=== PATIENT | female | born 1955 | race Caucasian/White ===

== ENCOUNTER 2024-03-27 07:02 | Day surgery (SDC) | payer MEDICARE ==
[~2024-03-27] VITALS: Ht 152.4 cm; Wt 87.5 kg
[~2024-03-27 07:02] MED LIST: ALENDRONATE SOD70 MG PO; ALPRAZOLAM0.25 MG PO; ASPIRIN81 MG PO; BUSPIRONE PO; FEXOFENADINE H180 M1; IRON325 M1; ISOSORB MONO30 MG PO; LISINOPRIL PO; MOUNJARO SC; NORVASC PO; PANTOPRAZOLE SO40 M1 PO; ROSUVASTATIN CA40 MG PO; SINGULAIR10 MG PO; TOPROL XL25 M1 PO
[2024-03-27] MEDS ORDERED: SODIUM CHLORIDE 0.9% 1,000 ML IV ONE (07:12)
[2024-03-27] MEDS ORDERED: FAMOTIDINE 10MG/ML 2ML SDV IV ONE (07:12)
[2024-03-27 09:07] VITALS: BP 104/63
[2024-03-27] MEDS ORDERED: STERILE WATER FOR IRRIGATION 1,000 ML BTL IR ONE (09:21)
[2024-03-27] MEDS ORDERED: GLYCOPYRROLATE 0.2 MG/ML IV ONE (10:34)
[2024-03-27] MEDS ORDERED: PROPOFOL 200 MG/20 ML VIAL IV ONE (10:34)
[2024-03-27] MEDS ORDERED: LIDOCAINE HCL 2% 2ML SDV IV ONE (10:34)
== END 2024-03-27 09:20 | disposition home or self-care (01) ==
LOC: ORM 07:02
PROVIDERS: ATTEND Surgery
PROC: 0DJD8ZZ Inspection of Lower Intestinal Tract, Via Natural or Artificial Opening Endoscopic (ICD-10-PCS; principal; 2024-03-27)
PROC: 0DB48ZX Excision of Esophagogastric Junction, Via Natural or Artificial Opening Endoscopic, Diagnostic (ICD-10-PCS; 2024-03-27)
DX: Z12.11 Encounter for screening for malignant neoplasm of colon (principal); K64.8 Other hemorrhoids; K20.90 Esophagitis, unspecified without bleeding; K44.9 Diaphragmatic hernia without obstruction or gangrene; I10 Essential (primary) hypertension; I25.10 Atherosclerotic heart disease of native coronary artery without angina pectoris; I25.2 Old myocardial infarction; K21.9 Gastro-esophageal reflux disease without esophagitis; Z95.5 Presence of coronary angioplasty implant and graft; Z86.0100 Personal history of colon polyps, unspecified; Z87.19 Personal history of other diseases of the digestive system
CPT/HCPCS: 43239; G0121; J1596